=== PATIENT | male | born 1995 | race Caucasian/White ===

== ENCOUNTER 2025-08-02 21:15 | Emergency (ER) | payer OTHER, SELFPAY ==
[2025-08-02 21:17] VITALS: BP 93/40
[2025-08-02 21:42] LABS: Hematocrit 45.5 % (39.0-52.0); Hemoglobin 15.9 g/dL (13.0-18.0); Mean Corp Hgb Conc. 34.9 g/dL (33.0-37.0); Mean Corpuscular Volume 84.9 fL (80.0-94.0); Nucleated Red Blood Cells % 0 % (-); Platelet Count 180 10^3/uL (130-400); Red Cell Dist. Width 12.3 % (11.5-14.5)
[2025-08-02 22:10] LABS: ALT (SGPT) 66 U/L (0-50); AST (SGOT) 35 U/L (17-59); Albumin 5.2 g/dl (3.5-5.0); Alkaline Phosphatase 35 U/L (38-126); Blood Urea Nitrogen 14 mg/dl (9-20); Calcium 9.6 mg/dl (8.4-10.2); Carbon Dioxide 23 mmol/L (22-30); Chloride 98 mmol/L (98-107); Glucose 98 mg/dl (70-99); Potassium 4.3 mmol/L (3.5-5.1); Sodium 133 mmol/L (135-145); Total Protein 8.5 g/dl (6.3-8.2); eGFR > 60.00
[2025-08-02 22:30] VITALS: BMI 26.9
[2025-08-02 22:51] LABS: COVID-19 Antigen Positive (Negative)
--- NOTE | 2025-08-02 22:51 | ED.GENMED ---
History of Present Illness
General
Chief Complaint: Fainting/Passed Out
Source: patient and family
Exam Limitations: none
Time Seen by Provider: 08/02/25 22:31
Nursing documentation reviewed up to this point in time: agreed with
History of Present Illness
History of Present Illness:
29-year-old male with no reported chronic medical issues presents to the ER for evaluation after syncopal episode in the setting of recent URI type symptoms. Patient reports that he started feeling unwell yesterday evening�he says he was fatigued,
having congestion, had cough throughout the day, poor appetite all day. He says he rested in bed all day and then this evening around 8:50 PM got up to go to the bathroom and while he was urinating he felt lightheaded and passed out. He did have
minor head strike. Denies any headache or neck pain or any other injuries from the fall. He denies any chest pain or palpitations, shortness of breath preceding the fall. He does report that he did not have very much to eat or drink today because
he was feeling unwell and was mainly resting in bed all day. No other acute complaints.
Review of Systems
Review of Systems
All Other Systems: ROS reviewed and negative except as documented in HPI and ROS
Constitutional: Reports fever, fatigue and chills
EENT: Reports runny nose; Denies sore throat
Respiratory: Reports cough; Denies trouble breathing
Cardiac: Reports syncope; Denies chest pain or palpitations
ABD/GI: Reports anorexia; Denies abdominal pain, nausea, vomiting or diarrhea
: Denies dysuria, frequency or flank pain
Musculoskeletal: Denies neck pain or back pain
Neurological: Denies headache
Phy Exam
Physical Exam
Physical Exam:
General: Awake, alert, oriented x3; no acute distress
Head: Normocephalic, atraumatic�no cephalhematoma noted
Eyes: Conjunctiva normal, EOMI, pupils equal round reactive to light bilaterally
Throat: Airway intact, handling secretions
Neck: Trachea midline, no cervical spine tenderness
Lungs: Clear to auscultation bilaterally, no wheezing, rales, rhonchi
Heart: Regular rate and rhythm, no murmurs, gallops, or rubs
Abd: Soft, non distended, nontender
Back: No tenderness in the thoracic or lumbar spine
Neuro: Grossly intact
Skin: Warm and dry
Extremities: Atraumatic, no edema in extremities, equal pulses in all extremities
Scores
Heart Failure Risk
Heart Failure Risk Score: Not Applicable
Heart Score for Chest Pain Patients
STEMI patient?: Not applicable
Bladen Syncope Rule
Conjestive Heart Failure History: No
Hematocrit <30%: No
EKG Abnormal (New changes, non NSR on EKG/Monitor): No
Shortness of Breath Symptoms: No
Systolic BP <90 mmHg at Triage: No
Patient is high risk for syncope: No
Withdrawal Assessment of Alcohol
Withdrawal Assessment Completed?: Not applicable
Course
Orders/Labs/Results
Orders:
Orders
08/02/25 21:24
EKG [Electrocardiogram (*1)] Urgent
Reason for Study: Tachycardia
EKG- Treatment ONCE
08/02/25 21:36
Complete Blood Count/With Diff Urgent
Comprehensive Metabolic Panel Urgent
08/02/25 22:34
COVID-19 Antigen Urgent
Source: Nasal Swab
Influenza A+B Rapid Molecular Urgent
GAUTAM Source: Nasal Swab
Specimen Description:
08/02/25 22:38
0.9% Sodium Chloride 1000 ml [Nss] 1,000 ml IV BOLUS
08/02/25 22:39
Acetaminophen [Tylenol] 1,000 mg PO NOW STA
08/02/25 22:57
CR Chest - 2 Views Urgent
Comment:
Reason For Exam: cough, fever, syncope
Abnormal Lab Results
08/02/25 08/02/25
21:36 22:34
MPV 10.8 H fL
(7.4-10.4)
Absolute Lymphs (auto) 1.0 L 10^3/uL
(1.2-3.4)
Absolute Monos (auto) 1.1 H 10^3/uL
(0.1-0.6)
Lymphocytes % 14.4 L %
(20.5-51.1)
Monocytes % 16.7 H %
(1.7-9.3)
Sodium 133 L mmol/L
(135-145)
ALT 66 H U/L
(0-50)
Alkaline Phosphatase 35 L U/L
(38-126)
Total Protein 8.5 H g/dl
(6.3-8.2)
Albumin 5.2 H g/dl
(3.5-5.0)
SARS-CoV-2 Antigen Positive A
(Negative)
08/02/25 21:36
08/02/25 21:36
Vital Signs
Initial and Last Documented VS:
Initial Vital Signs
Temp Pulse Resp BP Pulse Ox
37.0 C 86 18 93/40 96
08/02/25 21:17 08/02/25 21:17 08/02/25 21:17 08/02/25 21:17 08/02/25 21:17
Last Documented Vital Signs
Temp Pulse Resp BP Pulse Ox
38.4 C H 80 25 118/66 99
08/02/25 22:30 08/02/25 23:30 08/02/25 23:30 08/02/25 23:00 08/02/25 23:30
MDM/Problems Addressed
Differential Diagnosis Includes:
Syncope: Vasovagal syncope, orthostasis/dehydration, micturition syncope, dysrhythmia considered less likely
URI symptoms: Viral syndrome, pneumonia less likely
MDM/Problems Addressed:
29-year-old male presents for evaluation of syncopal episode in the setting of recent URI symptoms�has had cough, congestion, fatigue, found to be febrile here this evening. Was sleeping in bed all day, got up at around 8:50 PM to use the bathroom
and passed out. No serious injuries thankfully he did have a minor head strike but no objective signs of head trauma and reassuring neurologic exam. He did have some mild hypotension and was febrile here. Physical exam as noted. Suspect likely
dehydration�admits to poor p.o. intake today in the setting of his illness. Symptoms are most consistent with a viral syndrome. Will check basic labs, EKG, COVID and flu swabs, chest x-ray to rule out pneumonia. Provide IV fluids and Tylenol.
Reassess after the above.
Labs reviewed: CBC and CMP no clinically significant abnormalities. He is positive for COVID which accounts for his symptoms. Patient declined chest x-ray, lungs sound clear�will hold off at patient request. Plan for discharge after IV fluids
suspect syncope vasovagal versus orthostasis from dehydration versus micturition. Follow-up with primary care physician. All questions answered.
*Radiology
Radiology exam reviewed: preliminary read by ED provider
*Pulse Oximetry
SaO2: 96
Oxygen Mode of Delivery: Room air
Patient hypoxic: no (96%)
*EKG
Interpreted by ED Provider?: Yes
Heart Rate: 83
Rate: normal
Rhythm: sinus
[place]: normal axis
Interval: normal interval
QRS Pattern: normal QRS
Ischemia: no ischemia
*Critical Care Note
Total Time (30-74mins, 75-104mins- exclusive of procedures): Not Applicable
Data Reviewed
Source: patient and family
Further Testing Considered But Not Given:
Considered need for CT head
ED Attending Note
-
Portions of this chart may have been created with voice recognition software.� Occasional wrong word or��sound alike� substitutions may have occurred due to the inherent limitations of voice recognition software.
Discharge Plan
Departure
Patient with high blood pressure during this ER visit?: No
Discharge Problem:
COVID-19, Syncope
Instructions: Syncope (Fainting) (DC), COVID-19 in adults (DC)
Prescriptions:
No Action
acetaminophen-codeine 1 TABLET tablet
1 tab PO Q4HPRN PRN (Reason: severe pain) Qty: 15 0RF
sulfamethoxazole-trimethoprim 1 TABLET tablet
1 tab PO BID Qty: 19 0RF
cephalexin 500 MG capsule
500 mg PO QID Qty: 39 0RF
Referrals:
Cody Gotti DO [Family Provider, Internal Medicine] - Follow up in 1 week
Activity Restrictions/Additional Instructions:
Thank you for visiting the Emergency Department at [facility].
1. Please schedule a follow up appointment as directed. Call first thing tomorrow morning to make an appointment.
2. If indicated, please take your medications as instructed and indicated on discharge paperwork.
3. If any of your symptoms do not improve, or persist, or become more severe within 6-12 hours, please return to the emergency department for further care.
4. Please return to the emergency department if you develop a headache, neck pain/stiffness, fever greater than 100.4F, chest pain, shortness of breath, persistent nausea, vomiting, slurred speech, difficulty walking, numbness/tingling, weakness,
signs of infection or any other symptoms that are worrisome to you.
Please call [phone] if you have any questions.
Interventions
Interventions:
*Risk Screen - Suicide Last Done: 08/02/25 21:17
*General Assessment Last Done: 08/02/25 21:17
*Neglect/Abuse Screening Last Done: 08/02/25 21:17
*ED COVID-19 Vaccine History Last Done: 08/02/25 21:17
*ED Influenza Vaccine History Last Done: 08/02/25 21:17
[facility] Fall Risk Assessment Tool Last Done: 08/02/25 22:47
ED- Cardiac Assessment Last Done: 08/02/25 22:42
ED- Neurological Assessment Last Done: 08/02/25 22:42
Discharge Date and Time
Print Language: LATVIAN
[2025-08-02 23:00] VITALS: BP 118/66
[2025-08-02] MEDS: TYLENOL 1000 MG PO (23:07)
[2025-08-02] MEDS: NSS 1000 IV (23:10)
[2025-08-03] VITALS: BP 118/70
== END 2025-08-03 00:50 | disposition home or self-care (01) ==
LOC: EMR 21:15
PROVIDERS: Emergency Medicine; EMERGENCY PHYSICIAN Emergency Medicine; FAMILY PHYSICIAN Internal Medicine
DX: U07.1 COVID-19 (principal); R55 Syncope and collapse
CPT/HCPCS: 99283; 96360; 80053; 85025; 87502; 87811; 93005